=== PATIENT | female | born 1950 | race African-American/Black ===

== ENCOUNTER → 2017-04-23 16:22 | Outpatient (CLI) | payer OTHER | END | disposition home or self-care (01) | LOC: D.MAMMO 10:00 | DX: Z12.31 Encounter for screening mammogram for malignant neoplasm of breast (principal) ==

== ENCOUNTER 2018-05-21 19:00 | Outpatient (CLI) | payer OTHER | END 2018-05-21 23:59 | disposition home or self-care (01) | LOC: D.MAMMO 19:00 | DX: Z12.31 Encounter for screening mammogram for malignant neoplasm of breast (principal) ==